=== PATIENT | female | born 1960 | race Caucasian/White ===

== ENCOUNTER 2017-05-28 16:48 | Emergency (ER) | payer MEDICAID, OTHER ==
[~2017-05-28] VITALS: Ht 149.9 cm; Wt 41.0 kg
[2017-05-28 16:51] VITALS: Ht 149.9 cm; Wt 41.0 kg
[2017-05-28] MEDS ORDERED: ONDANSETRON 4 MG INJ IV STA (17:16)
[2017-05-28] MEDS ORDERED: FAMOTIDINE 20 MG INJ IV STA (17:16)
[2017-05-28] MEDS ORDERED: SOD CHLORIDE 0.9% 1,000 ML IV STA (17:16)
[2017-05-28] MEDS ORDERED: KETOROLAC 15 MG INJ IV STA (17:16)
[2017-05-28] MEDS ORDERED: METF1000 PO (18:00)
[2017-05-28] MEDS ORDERED: SIMV40TA2 PO (18:24)
[2017-05-28] MEDS ORDERED: DAPA5TAB PO (18:24)
[2017-05-28 18:33] LABS: BASOPHIL # 0.1 10^3/ul (0.0-0.1); BASOPHILS % 0.7 % (0.0-2.0); EOSINOPHILS # 0.1 10^3/ul (0.0-0.5); EOSINOPHILS % 1.2 % (0.0-7.0); HEMATOCRIT 42.3 % (37.0-47.0); HEMOGLOBIN 14.3 g/dl (12.0-16.0); LYMPHOCYTES # 2.4 10^3/ul (0.8-2.9); LYMPHOCYTES % 29.2 % (15.0-51.0); MEAN CORPUSCULAR HEMOGLOBIN 28.3 pg (29.0-33.0); MEAN CORPUSCULAR HGB CONC 33.8 g/dl (32.0-37.0); MEAN CORPUSCULAR VOLUME 83.8 fl (82.0-101.0); MEAN PLATELET VOLUME 10.8 fl (7.4-10.4); MONOCYTE # 0.5 10^3/ul (0.3-0.9); MONOCYTES % 6.1 % (0.0-11.0); NEUTROPHIL # 5.2 10^3/ul (1.6-7.5); NEUTROPHILS % 62.6 % (39.0-77.0); PLATELET COUNT 246 10^3/UL (140-415); RED BLOOD COUNT 5.05 10^6/ul (4.20-5.40); RED CELL DISTRIBUTION WIDTH 12.6 % (11.5-14.5); WHITE BLOOD COUNT 8.4 10^3/ul (4.8-10.8)
[2017-05-28 18:35] LABS: ADD SCAN DIFF NO
[2017-05-28 18:36] LABS: ADD UMIC NO; UR ASCORBIC ACID NEGATIVE (NEGATIVE); UR BILIRUBIN (Dip) NEGATIVE (NEGATIVE); UR BLOOD (Dip) NEGATIVE (NEGATIVE); UR CLARITY CLEAR (CLEAR); UR COLOR YELLOW (YELLOW); UR GLUCOSE (Dip) 3+ mg/dL (NEGATIVE); UR KETONES (Dip) TRACE mg/dL (NEGATIVE); UR LEUKOCYTE ESTERASE (Dip) NEGATIVE Leu/ul (NEGATIVE); UR NITRITE (Dip) NEGATIVE (NEGATIVE); UR TOTAL PROTEIN (Dip) NEGATIVE (NEGATIVE); UR UROBILINOGEN (Dip) NEGATIVE (NEGATIVE)
[2017-05-28 18:45] LABS: ALBUMIN 5.1 g/dl (3.3-4.9); ALBUMIN/GLOBULIN RATIO 1.7; BILIRUBIN,INDIRECT 0.1 mg/dl (0-1.1); BILIRUBIN,TOTAL 0.1 mg/dl (0.2-1.3); CALCIUM 9.3 mg/dl (8.4-10.2); CREATININE 0.51 mg/dl (0.44-1.00); POTASSIUM 3.9 mmol/L (3.5-5.1); TOTAL PROTEIN 8.1 g/dl (6.1-8.1)
--- NOTE | 2017-05-28 20:27 | RADRPT ---
PROCEDURE: CT Abdomen and Pelvis without contrast. CLINICAL INDICATION: Lower abdominal pain. TECHNIQUE: Multiple contiguous axial CT images of the abdomen and pelvis were obtained without the administration of intravenous contrast. Coronal and sagittal reconstructions were also performed. CTDIvol (mGy): 6.09; Total Exam DLP (mGy-cm): 249.14. One or more of the following dose reduction techniques were utilized: - Automated exposure control. - Adjustment of the mA and/or kV according to patient size. - Use of iterative reconstruction technique. COMPARISON: 08/28/2016. FINDINGS: Limited imaging of the lower thorax is unremarkable. The liver and spleen are homogeneous in density. The gallbladder, pancreas and adrenal glands are u nremarkable. The kidneys are symmetric in size. There are no nephroureteral stones. There is no hydronephrosis o r abnormal perinephric inflammation. The abdominal aorta is normal in caliber. Scattered minimal atherosclerotic calcification is observ ed. There is no periaortic / retroperitoneal lymphadenopathy. The stomach and small intestines are unremarkable. A moderate volume of formed stool seen throughou t the colon. The appendix is normal. There are no focal inflammatory changes of the mesentery. The re is no mesenteric lymphadenopathy. There is no ascites. The bladder, uterus and adnexa are unremarkable. There is no free pelvic fluid. There is no pelvic sidewall or inguinal lymphadenopathy. Mild degenerative changes of the lumbar spine are present. Body wall soft tissues are unremarkable. IMPRESSION: No evidence of abdominopelvic mass, lymphadenopathy or acute inflammatory pathology. RPTAT: HLST .Caryn Charles MD, MD Date Time Electronically viewed and signed by .Caryn Charles MD, on 05/28/2017 20:27 .T/
--- NOTE | 2017-05-28 20:32 | ERD ---
ER Documentation Chief Complaint Date/Time DATE: 05/28/17 TIME: 20:30 Chief Complaint ABDOMINAL PAIN RADIATING TO THE BACK X 1 WEEK HPI This is a 46-year-old female who presents to the emergency room for evaluation of abdominal cramping, nausea and one episode of vomiting over the past 1 week. The patient denies any blood in her vomit or stool. She states her abdominal cramping is localized all over the abdomen with no radiation. She denies any aggravating or relieving factors for symptoms and she came to the emergency room today for evaluation. ROS All systems reviewed and are negative except as per history of present illness. Medications Home Meds Reported Medications Simvastatin* (Zocor*) 40 Mg Tablet, 40 MG PO QHS, #30 TAB 05/28/17 Dapagliflozin Propanediol (Farxiga) 5 Mg Tablet, 5 MG PO DAILY, #30 TAB 05/28/17 Metformin Hcl* (Metformin Hcl*) 1,000 Mg Tablet, 1000 MG PO WITH BREAKFAST DINNE , #60 TAB 05/28/17 Allergies Allergies: Coded Allergies: No Known Allergy (Unverified , 05/28/17) PMhx/Soc History of Surgery: No Anesthesia Reaction: No Hx Neurological Disorder: No Hx Cardiac Disorders: Yes (HDL) Hx Psychiatric Problems: No Hx Miscellaneous Medical Probl: Yes (DM ) Hx Alcohol Use: No Hx Substance Use: No Hx Tobacco Use: No Smoking Status: Never smoker Physical Exam Vitals Vital Signs Date Time Temp Pulse Resp B/P Pulse Ox O2 Delivery O2 Flow Rate FiO2 05/28/17 19:15 87 23 123/68 100 Room Air 05/28/17 18:28 98.2 81 15 134/71 100 Room Air 05/28/17 16:51 98.7 89 18 120/65 97 Physical Exam INITIAL VITAL SIGNS: Reviewed by me GENERAL: The patient is well developed and appropriate for usual state of health in no apparent distress HEENT: Dry mucous membranes, pupils equal, round, and reactive to light. EOMI. There is no scleral icterus. NECK: C-spine is soft and supple, there is no meningismus. There is no cervical lymphadenopathy. LUNGS: Clear to auscultation bilaterally. There are no rales, wheezes or rhonchi. HEART: Regular rate and rhythm, no murmurs, clicks, rubs or gallops. ABDOMEN: Soft, non-tender, non-distended. There are bowel sounds in all four quadrants. No rebound or guarding. EXTREMITIES: There is no peripheral cyanosis or edema. No focal swelling or erythema. NEUROLOGICAL: The patient moves all four extremities with 5/5 strength. Cranial nerves II - XII are intact. Normal gait. Alert and oriented SKIN: There is no apparent rash or petechiae. HEME/LYMPHATIC: There is no evidence of excessive bruising or lymphedema. PSYCHIATRIC: The patient does not appear anxious or depressed. Result Diagram: 05/28/17181905/28/171819 Results 24 hrs Laboratory Tests Test 05/28/17 18:00 05/28/17 18:20 Urine Color YELLOW Urine Clarity CLEAR Urine pH 5.0 Urine Specific [place] 1.040 Urine Ketones TRACEmg/dL Urine Nitrite NEGATIVEmg/dL Urine Bilirubin NEGATIVEmg/dL Urine Urobilinogen NEGATIVEmg/dL Urine Leukocyte Esterase NEGATIVELeu/ul Urine Hemoglobin NEGATIVEmg/dL Urine Glucose 3+mg/dL Urine Total Protein NEGATIVEmg/dl White Blood Count 8.410^3/ul Red Blood Count 5.0510^6/ul Hemoglobin 14.3g/dl Hematocrit 42.3% Mean Corpuscular Volume 83.8fl Mean Corpuscular Hemoglobin 28.3pg Mean Corpuscular Hemoglobin Concent 33.8g/dl Red Cell Distribution Width 12.6% Platelet Count 35073^3/UL Mean Platelet Volume 10.8fl Neutrophils % 62.6% Lymphocytes % 29.2% Monocytes % 6.1% Eosinophils % 1.2% Basophils % 0.7% Nucleated Red Blood Cells % 0.0/100WBC Neutrophils # 5.210^3/ul Lymphocytes # 2.410^3/ul Monocytes # 0.510^3/ul Eosinophils # 0.110^3/ul Basophils # 0.110^3/ul Nucleated Red Blood Cells # 0.010^3/ul Sodium Level 139mmol/L Potassium Level 3.9mmol/L Chloride Level 101mmol/L Carbon Dioxide Level 24mmol/L Anion Gap 18 Blood Urea Nitrogen 12mg/dl Creatinine 0.51mg/dl Glucose Level 238mg/dl Calcium Level 9.3mg/dl Total Bilirubin 0.1mg/dl Direct Bilirubin 0.00mg/dl Indirect Bilirubin 0.1mg/dl Aspartate Amino Transf (AST/SGOT) 17IU/L Alanine Aminotransferase (ALT/SGPT) 27IU/L Alkaline Phosphatase 125IU/L Total Protein 8.1g/dl Albumin 5.1g/dl Globulin 3.00g/dl Albumin/Globulin Ratio 1.70 Lipase 138U/L Current Medications Medications (Trade) Dose Ordered Sig/Sunil Route PRN Reason Start Time Stop Time Status Last Admin Dose Admin Sodium Chloride (NS) 1,000 ml @ 1,000 mls/hr Q1H STAT IV 05/28/17 17:16 05/28/17 18:15 DC 05/28/17 17:16 Ondansetron HCl (Zofran Inj) 4 mg ONCE STAT IV 05/28/17 17:16 05/28/17 17:17 DC 05/28/17 18:11 Famotidine (Pepcid Iv) 20 mg ONCE STAT IV 05/28/17 17:16 05/28/17 17:17 DC 05/28/17 18:11 Ketorolac Tromethamine (Toradol) 15 mg ONCE STAT IV 05/28/17 17:16 05/28/17 17:17 DC 05/28/17 18:12 Procedures/MDM CT abdomen pelvis without :No evidence of abdominopelvic mass, lymphadenopathy or acute inflammatory pathology. This [age]-year-old female presents to the emergency room for evaluation of abdominal cramping, nausea and vomiting. I when I evaluated this patient she did have mild dry mucous membranes. She was afebrile, nontoxic-appearing and was hemodynamically stable. Lab work was obtained including urinalysis all of which is normal except for uncontrolled blood sugar. She was given 1 L fluids. CAT scan is within normal limits. After fluids and Zofran upon my reevaluation the patient states she is feeling much better. I do feel that her symptoms can be contributed to mild dehydration. This patient will be discharged home at this time with instructions to return to the ER if she develops any worsening symptoms. Differential diagnoses entertained was broad with potential high acuity. Patient has been evaluated for appendicitis, cholecystitis, and other high risk medical and surgical causes of abdominal pain. Ultimately the patient's evaluation is nondiagnostic. Based on the patient's lack of risk factors, as well as the patient's clinical, laboratory, and imaging data, the patient appears to be low risk for these high risk causes of abdominal pain. Departure Diagnosis: Primary Impression: Nausea & vomiting Additional Impressions: Mild dehydration Uncontrolled diabetes mellitus Condition: Stable ELE FREIRE DO May 28, 2017 20:32
[2017-05-28 21:45] VITALS: BP 121/90; PULSE 87; RESP 23; TEMP 98.7
== END 2017-05-28 21:50 | disposition home or self-care (01) ==
LOC: E/R 16:48
DX: R11.2 Nausea with vomiting, unspecified (principal); E86.0 Dehydration; E11.9 Type 2 diabetes mellitus without complications; Z79.84 Long term (current) use of oral hypoglycemic drugs
CPT/HCPCS: 74176; 80053; 81003; 83690; 85025; J1885; J2405; J7030; Z7610; 36415; 96374; 96375

== ENCOUNTER 2017-09-18 19:13 | Emergency (ER) | payer SELFPAY ==
[~2017-09-18] VITALS: Ht 149.9 cm; Wt 41.0 kg
[~2017-09-18 19:13] MED LIST: DAPA5TAB PO; METF1000 PO; SIMV40TA2 PO
[2017-09-18 19:24] VITALS: Ht 149.9 cm; Wt 41.0 kg
[2017-09-18 20:41] LABS: ADD UMIC NO; UR ASCORBIC ACID NEGATIVE (NEGATIVE); UR BILIRUBIN (Dip) NEGATIVE (NEGATIVE); UR BLOOD (Dip) NEGATIVE (NEGATIVE); UR CLARITY CLEAR (CLEAR); UR COLOR STRAW (YELLOW); UR GLUCOSE (Dip) 3+ mg/dL (NEGATIVE); UR KETONES (Dip) NEGATIVE (NEGATIVE); UR LEUKOCYTE ESTERASE (Dip) NEGATIVE Leu/ul (NEGATIVE); UR NITRITE (Dip) NEGATIVE (NEGATIVE); UR TOTAL PROTEIN (Dip) NEGATIVE (NEGATIVE); UR UROBILINOGEN (Dip) NEGATIVE (NEGATIVE)
[2017-09-18] MEDS ORDERED: CYCL-319 PO (20:47)
[2017-09-18] MEDS ORDERED: NAPR-260 PO (20:47)
--- NOTE | 2017-09-18 21:13 | ERD ---
ER Documentation Chief Complaint Chief Complaint bib self, cc: back pain x 1 week HPI 57-year-old female presents to the emergency department complaining of bilateral moderate caliente lumbar back pain for the past week that is increased with movement for the past week. Patient denies any trauma. She states that she took ibuprofen at 5 PM. Denies dysuria, fevers, neuro deficits ROS All systems reviewed and are negative except as per history of present illness. Medications Home Meds Active Scripts Cyclobenzaprine Hcl* (Cyclobenzaprine Hcl*) 10 Mg Tablet, 10 MG PO TID, #15 TAB Prov:TAMEKA ROLDAN PA-C 09/18/17 Naproxen* (Naprosyn*) 500 Mg Tablet, 500 MG PO BID Y for PAIN AND/OR INFLAMMATION, #30 TAB Prov:TAMEKA ROLDAN PA-C 09/18/17 Reported Medications Simvastatin* (Zocor*) 40 Mg Tablet, 40 MG PO QHS, #30 TAB 05/28/17 Dapagliflozin Propanediol (Farxiga) 5 Mg Tablet, 5 MG PO DAILY, #30 TAB 05/28/17 Metformin Hcl* (Metformin Hcl*) 1,000 Mg Tablet, 1000 MG PO WITH BREAKFAST DINNE , #60 TAB 05/28/17 Allergies Allergies: Coded Allergies: No Known Allergy (Unverified , 05/28/17) PMhx/Soc Medical and Surgical Hx: pt denies Medical Hx, pt denies Surgical Hx History of Surgery: No Anesthesia Reaction: No Hx Neurological Disorder: No Hx Cardiac Disorders: Yes (HDL) Hx Psychiatric Problems: No Hx Miscellaneous Medical Probl: Yes (DM ) Hx Alcohol Use: No Hx Substance Use: No Hx Tobacco Use: No Smoking Status: Never smoker Physical Exam Vitals Vital Signs Date Time Temp Pulse Resp B/P Pulse Ox O2 Delivery O2 Flow Rate FiO2 09/18/17 19:24 98.5 78 18 126/81 100 Physical Exam GENERAL: WD/WN, in no apparent distress, non-toxic appearing HENT: NC/AT EYES: Conjunctiva normal NECK: Supple PULM: Normal labored breathing CV: Good capillary refill GI: Non-distended, no guarding BACK: no deformities noted, normal spinal curvature, TTP on lumbar region, non- tender on spine midline, EXT: No clubbing, cyanosis, or edema NEURO: Moves on all fours, sensation intact, normal gait SKIN: intact PSYCH: Normal mood Results 24 hrs Laboratory Tests Test 09/18/17 20:05 Urine Color STRAW Urine Clarity CLEAR Urine pH 7.0 Urine Specific [place] 1.030 Urine Ketones NEGATIVEmg/dL Urine Nitrite NEGATIVEmg/dL Urine Bilirubin NEGATIVEmg/dL Urine Urobilinogen NEGATIVEmg/dL Urine Leukocyte Esterase NEGATIVELeu/ul Urine Hemoglobin NEGATIVEmg/dL Urine Glucose 3+mg/dL Urine Total Protein NEGATIVEmg/dl Procedures/MDM 57-year-old female presents to the ER with lumbar back pain and muscle spasms, low suspicion for spinal abscess, vertebral fracture, cauda equina syndrome, spinal stenosis due to physical examination. Patient is neurovascularly intact. Prescriptions naproxen, flexeril was given to patient, discussed to return to the ED if not improving as expected or follow -up with a primary care physician. Patient understood and agreed with this plan. Departure Diagnosis: Primary Impression: Back pain Condition: Stable Patient Instructions: Back Exercises, Lumbar, Back Pain (Acute Or Chronic) Referrals: [facility] (PCP) Additional Instructions: Visite a lin mdjay jay boo para un EXAMEN.Regrese a estas instalaciones si no se mejora maximilian esperbamos o maximilian le dijimos. [place] toda la medicina lin y maximilian se le indic. Regrese a estas instalaciones si no se mejora maximilian esperbamos o maximilian le dijimos. La medicina que se le recet puede causarle sueo.NO DEBE MANEJAR NI OPERAR MAQUINARIAS PELIGROSAS mientras esta tomando esta medicina! TAMEKA ROLDAN PA-C Sep 18, 2017 21:13
== END 2017-09-18 20:54 | disposition home or self-care (01) ==
LOC: FTE 19:13
DX: M54.5 Low back pain (principal); E11.9 Type 2 diabetes mellitus without complications; Z79.84 Long term (current) use of oral hypoglycemic drugs
CPT/HCPCS: 81003; 99283